=== PATIENT | male | born 1955 | race Caucasian/White ===

== ENCOUNTER → 2022-01-02 | Day surgery (SDC) | payer MEDICARE, BC ==
[~2022-01-02] MED LIST: ASPIRIN81 MG PO; ATORVASTATIN CA40 MG PO; DAILY VITAMIN1 EAC2 PO; FLOMAX 0.4 MG0.4 MG PO; METOPROLOL SUCC25 MG PO; NITROGLYCERIN0.4 MG SL; PHENTERMINE H37.5 M1 PO; VITAMIN D21250 MCG PO
== END | disposition home or self-care (01) ==
LOC: OR 06:36
DX: Z12.11 Encounter for screening for malignant neoplasm of colon (principal); D12.8 Benign neoplasm of rectum; K57.30 Diverticulosis of large intestine without perforation or abscess without bleeding; Z86.010 Personal history of colon polyps; I10 Essential (primary) hypertension; E78.5 Hyperlipidemia, unspecified; M19.90 Unspecified osteoarthritis, unspecified site; E66.9 Obesity, unspecified; G47.33 Obstructive sleep apnea (adult) (pediatric); Z68.30 Body mass index [BMI] 30.0-30.9, adult; Z79.82 Long term (current) use of aspirin; Z79.899 Other long term (current) drug therapy; Z72.89 Other problems related to lifestyle
CPT/HCPCS: J2704; J7120